=== PATIENT | male | born 1995 | race African-American/Black ===

== ENCOUNTER 2019-09-10 02:18 | Emergency (ER) | payer BC, OTHER ==
[2019-09-10 02:28] VITALS: BP 111/79; PULSE 63; TEMP 98.1; BMI 18.1
[2019-09-10] MEDS ORDERED: KETOROLAC TROMETHAMINE 15 MG/ML VIAL IVPUSH ONE (02:28)
[2019-09-10] MEDS ORDERED: SODIUM CHLORIDE 0.9% 500 ML INFUS.BAG IV ONE (02:28)
[2019-09-10] MEDS ORDERED: KETOROLAC TROMETHAMINE 15 MG/ML VIAL ONE (02:39)
--- NOTE | 2019-09-10 03:45 | PDOC ---
History of Present Illness - General Chief Complaint: Constipation Stated Complaint: CONSTIPATION Time Seen by Provider: 09/10/19 02:28 History Source: Patient Exam Limitations: No Limitations - History of Present Illness Initial Comments: 09/10/19 06:14 increased stool fequency, crampy abd pain + nausea Timing/Duration: reports: constant Quality: reports: moderate Abdominal Pain Onset Location: reports: generalized abdomen Activities at Onset: reports: none Treatment Prior to Arrive: worse with: analgesics, antacids Aggravating Factors: improves with: None Alleviating Factors: improves with: None Past History - Past Medical History Allergies/Adverse Reactions: Allergies Allergy/AdvReac Type Severity Reaction Status Date / Time No Known Allergies Allergy Verified 09/10/19 02:20 Home Medications: Ambulatory Orders Ergocalciferol [Vitamin D2] 50,000 unit PO WEEKLY #4 capsule 02/16/19 Elviteg/Cob/Emtri/Tenof Alafen [Genvoya (Non-Formulary)] 1 each PO DAILY #30 tablet 06/20/19 Multivitamin,Ther and Minerals [Vitamin and Minerals] 1 each PO DAILY #30 tablet 06/20/19 Cholecalciferol (Vitamin D3) [Vitamin D3] 1,000 unit PO DAILY #30 capsule Anemia: No Asthma: No Cancer: No Cardiac Disorders: No COPD: No CHF: No Diabetes: No HTN: No Hypercholesterolemia: No Seizures: No Comment:: 09/10/19 06:15 HIV with good counts - Immunization History Immunization Up to Date: Yes - Psycho Social/Smoking Cessation Hx Smoking History: Never smoked Have you smoked in the past 12 months: No Information on smoking cessation initiated: No Hx Alcohol Use: Yes (RARELY) Drug/Substance Use Hx: Yes (MARIJUANA EVERY OTHER DAY) Substance Use Type: Marijuana Review of Systems - Review of Systems All Other Systems: Reviewed and Negative *Physical Exam - Vital Signs Last Vital Signs Temp Pulse Resp BP Pulse Ox 98.1 F 63 18 111/79 98 09/10/19 02:24 09/10/19 02:24 09/10/19 02:24 09/10/19 02:24 09/10/19 02:24 - Physical Exam General Appearance: Yes: Nourished, Appropriately Dressed HEENT: positive: Normal Voice Neck: negative: Lymphadenopathy (R), Lymphadenopathy (L) Respiratory/Chest: positive: Lungs Clear Cardiovascular: positive: Regular Rhythm Gastrointestinal/Abdominal: positive: Normal Bowel Sounds. negative: Tender, Distended ED Treatment Course - Medications Given in the ED: ED Medications Discontinued Medications Generic Name Dose Route Start Last Admin Trade Name Freq PRN Reason Stop Dose Admin Ketorolac Tromethamine 15 mg 09/10/19 02:28 09/10/19 02:40 Toradol Injection - IVPUSH 09/10/19 02:29 15 mg ONCE ONE Administration Sodium Chloride 2,000 ml 09/10/19 02:28 09/10/19 02:39 Normal Saline - IV 09/10/19 02:29 2,000 ml ONCE ONE Administration Medical Decision Making - Medical Decision Making ?AGE observed in ED, received NS, ketorolac symptomatically improved, tolerating PO abd nt 09/10/19 06:16 Discharge - Discharge Information Problems reviewed: Yes Clinical Impression/Diagnosis: Gastroenteritis Condition: Stable Disposition: HOME - Admission No - Follow up/Referral Referrals: Darryl Luna MD [Primary Care Provider] - Call tomorrow - Patient Discharge Instructions Patient Printed Discharge Instructions: DI for Viral Gastroenteritis -- Adult - Post Discharge Activity
== END 2019-09-10 03:47 | disposition home or self-care (01) ==
LOC: FER 02:18
PROC: 3E0333Z Introduction of Anti-inflammatory into Peripheral Vein, Percutaneous Approach (ICD-10-PCS; principal; 2019-09-10)
PROC: 3E0337Z Introduction of Electrolytic and Water Balance Substance into Peripheral Vein, Percutaneous Approach (ICD-10-PCS; 2019-09-10)
DX: K52.9 Noninfective gastroenteritis and colitis, unspecified (principal)
CPT/HCPCS: 99281-25